=== PATIENT | female | born 1970 | race Caucasian/White ===

== ENCOUNTER 2021-12-25 00:33 | Inpatient (IN) | payer BC ==
[~2021-12-25] VITALS: Ht 170.2 cm; Wt 92.5 kg
[2021-12-25 04:29] LABS: BASO % 0 % (0-3); EOS % 0 % (0-3); HEMATOCRIT 31.8 % (36.0-47.0); HEMOGLOBIN 10.7 g/dL (12.0-15.5); LYMPH # 0.5 x10^3/uL (1.0-4.8); LYMPH % 4 % (24-48); MEAN CORPUSCULAR HEMOGLOBIN 27 pg (25-35); MEAN CORPUSCULAR HGB CONC 34 g/dL (31-37); MEAN CORPUSCULAR VOLUME 80 fL (79-100); MONO % 0 % (0-9); NEUT # 11.1 x10^3/uL (1.8-7.7); NEUT % 96 % (31-73); PLATELET COUNT 340 x10^3/uL (140-400); RED BLOOD COUNT 3.97 x10^6/uL (3.50-5.40); RED CELL DISTRIBUTION WIDTH 14.3 % (11.5-14.5); WHITE BLOOD COUNT 11.6 x10^3/uL (4.0-11.0)
[2021-12-25 04:45] LABS: ALBUMIN 2.7 g/dL (3.4-5.0); ALBUMIN/GLOBULIN RATIO 0.7 (1.0-1.7); CALCIUM 8.2 mg/dL (8.5-10.1); CREATININE 2.3 mg/dL (0.6-1.0); GFR 22.4; POTASSIUM 3.8 mmol/L (3.5-5.1); TOTAL BILIRUBIN 0.3 mg/dL (0.2-1.0); TOTAL PROTEIN 6.6 g/dL (6.4-8.2)
[2021-12-25] MEDS ORDERED: IV NORMAL SALINE 1000ML BAG 1,000 ML IV SCH (05:15)
[2021-12-25] MEDS ORDERED: diphenhydrAMINE 50 MG/ML VIAL IV SCH (06:00)
[2021-12-25] MEDS ORDERED: methylPREDNISolone SOD SUCC PF 125 MG/2 ML VIAL. IV SCH (06:00)
[2021-12-25 07:00] VITALS: BP 101/65
[2021-12-25 08:00] VITALS: BP 105/76
[2021-12-25] MEDS ORDERED: TACR4TAB PO (08:52)
[2021-12-25] MEDS ORDERED: MULT-735 PO (08:52)
[2021-12-25] MEDS ORDERED: PRED2.5T PO (08:52)
[2021-12-25] MEDS ORDERED: VENL37.5 PO (08:52)
[2021-12-25] MEDS ORDERED: LISI-130 PO (08:52)
[2021-12-25] MEDS ORDERED: [UNRECOGNIZED DRUG - CODE] PO (08:52)
[2021-12-25] MEDS ORDERED: NIFE30TA95 PO (08:52)
[2021-12-25] MEDS ORDERED: FEXO180T81 PO (08:52)
--- NOTE | 2021-12-25 08:53 | NUR ---
Due to [facility] down[facility], admission charting was completed on paper and placed in the chart. 0600 doses of Solu-Medrol and Benadryl given and again charted on paper.
[2021-12-25 09:00] VITALS: BP 98/70
[2021-12-25 09:00] LABS: BACTERIA,URINE FEW /HPF (0-FEW); RBC,URINE 0 /HPF (0-2)
[2021-12-25] MEDS ORDERED: FAMOTIDINE 20 MG/2 ML VIAL IVP SCH (09:00)
[2021-12-25 10:00] VITALS: BP 104/65
[2021-12-25] MEDS ORDERED: predniSONE 5 MG TABLET PO SCH (11:00)
[2021-12-25] MEDS ORDERED: VENLAFAXINE XR 37.5 MG CAP.ER.24H. PO SCH (11:00)
[2021-12-25] MEDS ORDERED: MULTIVITAMIN with MINERAL TABLET. PO SCH (11:00)
[2021-12-25] MEDS ORDERED: FAMO-63 PO (11:15)
[2021-12-25] MEDS ORDERED: LOSA100T14 PO (11:15)
--- NOTE | 2021-12-25 11:55 | NUR ---
Patient discharged at 1155 accompanied by patient's daughter. Patient educated on new medications including Losartan, Medrol dose pack, and Pepcid, and informed to continue taking 25 mg Benadryl. Patient oriented, able to understand education provided. Notified pharmacy of new prescriptions. Patient is to follow up with PCP in 1 week and notify primary bss solution architect of admission and change in antihypertensive medications as soon as she is discharged. Patient refused to take normal daily medications here in the hospital, said she will take them when she gets home.
--- NOTE | 2021-12-25 17:00 | SSS ---
DATE OF SERVICE: 12/25/2021 ADMIT DATE: 12/25/2021 HISTORY OF PRESENT ILLNESS: The patient is a 51-year-old female patient who presented to the emergency room of [facility] with complaints of upper lip swelling that started around 8 hours prior to arrival. The patient stated that her lips started to expand toward her nose, denied any tongue or throat swelling. The patient has history of allergic reaction involving eye swelling or hives. The patient was started on Cipro for urinary tract infection 3 days ago, has had Cipro multiple times in the past. She also takes lisinopril for years. She was extensively investigated. The patient was diagnosed with Russell inhibitor induced angioneurotic edema. She was given diphenhydramine, subcutaneous epinephrine, methylprednisolone 125 mg and Pepcid and was transferred to [facility] ICU for close observation. PAST MEDICAL HISTORY: Significant for hypertension, and she has end-stage renal disease felt to be secondary to hypertensive nephrosclerosis. She was on peritoneal dialysis for 3 years and eventually had kidney transplant. PAST SURGICAL HISTORY:: Significant for kidney biopsies x 2, total abdominal hysterectomy with bilateral salpingo-oophorectomy, gastric bypass surgery and kidney transplant about 3 years ago. ALLERGIES: SHE IS ALLERGIC TO PENICILLIN, IODINE, PSYLLIUM, SULFAMETHOXAZOLE TRIMETHOPRIM AND OBVIOUSLY LISINOPRIL. MEDICATIONS: She is currently on following medications: She is on tacrolimus extended release 2.5 tablet daily, cetirizine 10 mg once a day, evoralimus 4 mg twice a day, prednisone 2.5 mg once a day, multivitamin 1 tablet one tablet once a day, Effexor XR 75 mg once a day, nifedipine 30 mg once a day, famotidine 20 mg and lisinopril 40 mg once a day, FAMILY HISTORY: Noncontributory. SOCIAL HISTORY: She is , has one daughter, she does not smoke, drink alcohol or recreational drugs. She works for the [employer] PHYSICAL EXAMINATION: GENERAL: On arrival to the emergency room, she looked well and was clearly in no apparent respiratory distress. No pallor, jaundice, cyanosis OR thyromegaly. No jugular venous distention. No limb edema. VITAL SIGNS: Her heart rate was 79, blood pressure 104/65, temperature was 98.2, respiratory rate was 20 and oxygen saturation was 100% on room air. HEAD, EYES, EARS, NOSE, AND THROAT: Normocephalic, atraumatic. Her upper lip is swollen on arrival to the emergency room and I actually saw picture she took of her lip and when I saw her this morning in the ICU, the swelling has completely resolved. She denied any problem swallowing or breathing. NECK: Supple. HEART: Normal first and second heart sounds. No gallop, rub or murmur. CHEST: Central trachea, equal bilateral chest expansion, air entry, vesicular breath sounds. No crepitation or rhonchi. ABDOMEN: Soft, nontender. NEUROLOGIC: She is grossly intact. LABORATORY DATA: Her lab work showed the white cell count 11.6, hemoglobin 11, hematocrit 32, MCV 80 and platelet count of 340 with manual differential showed 96% polymorphs, 4% lymphocytes. Her serum sodium was 139, potassium 3.8, chloride 101, bicarbonate 30, anion gap of 25, BUN 45, creatinine 2.3. Estimated GFR was 22 mL per minute. Her glucose 189, calcium was 8.2. Total bilirubin, AST, ALT, alkaline phosphatase were normal. Total protein 6.6, albumin was 2.7. The patient was treated with IV Solu-Medrol as well as diphenhydramine and Pepcid 20 mg IV. Her lip swelling has completely subsided. The patient was discharged home to continue on famotidine 20 mg twice a day, losartan potassium 100 mg once a day and she should continue on famotidine 20 mg twice a day, losartan potassium 100 mg once a day. She should continue on her everolimus 4 mg twice a day, fexofenadine hydrochloride, Rachelle 180 mg three tablet daily, multivitamin 1 tablet once a day, nifedipine 30 mg once a day, prednisone 2.5 tablets daily, tacrolimus (Envarsus XR) 2.5 tablets daily and Effexor 2 capsules daily. The patient is to discontinue lisinopril, added to he list of her allergies. FINAL DISCHARGE DIAGNOSES: 1. Russell inhibitor induced angioneurotic edema. 2. Hypertension. 3, End-stage renal disease, status post kidney transplant. She also has it seems chronic kidney disease. . [facility] [place] DR: Shara TID: [id number]
[2021-12-25] MEDS ORDERED: EVEROLIMUS PO SCH (21:00)
[2021-12-26] MEDS ORDERED: CETIRIZINE HCL 10 MG TABLET. PO SCH (09:00)
[2021-12-26] MEDS ORDERED: TACROLIMUS PO SCH (09:00)
== END 2021-12-25 11:55 | disposition home or self-care (01) | DRG 916 ==
LOC: 1 WEST ICU 00:33
PROVIDERS: ADMIT Internal Medicine; ATTEND Internal Medicine
DX: T78.3XXA Angioneurotic edema, initial encounter (principal); Z94.0 Kidney transplant status; N39.0 Urinary tract infection, site not specified; I12.9 Hypertensive chronic kidney disease with stage 1 through stage 4 chronic kidney disease, or unspecified chronic kidney disease; N18.9 Chronic kidney disease, unspecified; Z90.710 Acquired absence of both cervix and uterus; Z98.84 Bariatric surgery status; Z90.79 Acquired absence of other genital organ(s); Z90.722 Acquired absence of ovaries, bilateral; Z88.0 Allergy status to penicillin; Z91.041 Radiographic dye allergy status; Z88.2 Allergy status to sulfonamides; Z88.8 Allergy status to other drugs, medicaments and biological substances
CPT/HCPCS: 36415; 80053; 81001; 85025; J3490; J7030; G0378